=== PATIENT | male | born 1980 | race Caucasian/White ===

== ENCOUNTER 2020-03-31 18:28 | Emergency (ER) | payer MEDICAID ==
[~2020-03-31] VITALS: Ht 175.3 cm; Wt 70.3 kg
--- NOTE | 2020-03-31 18:28 | NUR ---
PT BIBRA FROM [employer] C/O OVERDOSE OF UNKNOWN DRUGS. PT IS AAOX3, NOT IN RESPIRATORY DISTRESS, HOOKED TO BREAD WRAPPING MACHINE FEEDER, KEPT RESTED AND COMFORTABLE. WILL CONTINUE TO MONITOR.
--- NOTE | 2020-03-31 18:37 | NUR ---
PT SEEN AND EXAMINED BY CARLOS MANUEL LUA.
[2020-03-31] MEDS ORDERED: ONDANSETRON HCL/PF 4 MG/2 ML VIAL ONE (18:46)
[2020-03-31] MEDS ORDERED: LORAZEPAM INJ 2 MG/ML VIAL ONE (18:47)
--- NOTE | 2020-03-31 18:55 | NUR ---
IV LINE ESTABLISHED G18 R HAND.
[2020-03-31] MEDS ORDERED: IV NS 0.9% 1,000 ML BAG IV ONE (19:00)
[2020-03-31] MEDS ORDERED: LORAZEPAM INJ 2 MG/ML VIAL IV ONE (19:00)
[2020-03-31] MEDS ORDERED: ONDANSETRON HCL/PF 4 MG/2 ML VIAL IVP ONE (19:00)
--- NOTE | 2020-03-31 23:21 | NUR ---
PATIENT AMBULATED TO THE RESTROOM WITH A STEADY GAIT.
--- NOTE | 2020-04-01 01:24 | NUR ---
IV removed. Catheter intact and site benign. Pressure and 4x4 applied to site. No bleeding noted.
--- NOTE | 2020-04-01 01:24 | NUR ---
PATIENT PROVIDED WITH A MEAL.
--- NOTE | 2020-04-01 01:43 | NUR ---
Patient discharged to home in stable condition. Written and verbal after care instructions given. Patient verbalizes understanding of instruction.
[2020-04-01 01:44] VITALS: BP 127/83
== END 2020-04-01 01:44 | disposition home or self-care (01) ==
LOC: ER 18:29
DX: F19.129 Other psychoactive substance abuse with intoxication, unspecified (principal); F11.10 Opioid abuse, uncomplicated; R11.2 Nausea with vomiting, unspecified; L53.9 Erythematous condition, unspecified; R00.0 Tachycardia, unspecified; I45.10 Unspecified right bundle-branch block; F41.9 Anxiety disorder, unspecified; F32.9 Major depressive disorder, single episode, unspecified
CPT/HCPCS: 93005 ×2; 96361; 96374; 96375; 99284; J2060; J2405; J7030

== ENCOUNTER 2020-04-02 11:14 | Inpatient (IN) | payer MEDICAID, OTHER ==
[~2020-04-02] VITALS: Ht 175.3 cm; Wt 70.3 kg
--- NOTE | 2020-04-02 11:15 | NUR ---
PT [address]IBRA [address] C/O BIZZARRE BEHAVIOR. PT IS AAOX2, NOT IN RESPIRATORY DISTRESS, HOOKED TO SENIOR SUSTAINABILITY CONSULTANT. KEPT RESTED AND COMFORTABLE. WILL CONTINUE TO MONITOR.
--- NOTE | 2020-04-02 11:25 | NUR ---
SEEN AND EXAMINED BY .
--- NOTE | 2020-04-02 11:29 | NUR ---
IV LINE ESTABLISHED BLOOD DRAWN AND SENT TO LAB.
[2020-04-02] MEDS ORDERED: IV NS 0.9% 1,000 ML BAG IV ONE (11:30)
--- NOTE | 2020-04-02 11:35 | NUR ---
URINE SPECIMEN COLLECTED AND SENT TO LAB.
[2020-04-02 11:37] LABS: BASOPHILS % (AUTO) 0.2 % (0.0-2.0); HEMATOCRIT 43 % (39-51); HEMOGLOBIN 14.7 g/dL (13.5-17.5); LYMPHOCYTES # (AUTO) 0.5 /CMM (0.8-4.8); LYMPHOCYTES % (AUTO) 3.2 % (20.0-44.0); MEAN CORPUSCULAR HGB CONC 34 g/dl (31.0-36.0); MEAN CORPUSCULAR VOLUME 96 fL (80-96); MONOCYTES # (AUTO) 1.2 /CMM (0.1-1.30); MONOCYTES % (AUTO) 7.4 % (2.0-12.0); NEUTROPHILS # (AUTO) 15.1 /CMM (1.8-8.9); NEUTROPHILS % (AUTO) 89.2 % (43.0-81.0); PLATELET COUNT (AUTO) 155 /CMM (150-450); RED BLOOD CELL COUNT(AUTO) 4.51 MIL/uL (4.5-6.0); WHITE BLOOD COUNT (AUTO) 16.9 K/uL (4.3-11.0)
[2020-04-02 11:42] LABS: CALCIUM, SERUM 8.4 mg/dL (8.5-10.1); CARBON DIOXIDE 20 mmol/L (21-32); CHLORIDE 104 mmol/L (98-107); CREATININE 1.8 mg/dL (0.6-1.3); GLUCOSE 95 mg/dL (74-106); POTASSIUM 4.1 mmol/L (3.5-5.1); SODIUM SERUM 141 mmol/L (136-145); UREA NITROGEN, BLOOD 27 mg/dL (7-18)
[2020-04-02] MEDS ORDERED: HALOPERIDOL LACTATE INJ 5 MG/ML VIAL ONE (11:47)
[2020-04-02 11:48] LABS: ACETAMINOPHEN 0 ug/ml (10-30); ALANINE AMINOTRANSFERASE 511 U/L (12-78); ALBUMIN 4.3 g/dL (3.4-5.0); ALCOHOL, BLOOD < 3 mg/dL (0-0); ALKALINE PHOSPHATASE 80 U/L (46-116); ASPARTATE AMINOTRANSFERASE 861 U/L (15-37); BILIRUBIN,DIRECT 0.3 mg/dL (0.0-0.2); BILIRUBIN,TOTAL 0.9 mg/dL (0.2-1.0); SALICYLATE 1.9 mg/dL (2.8-20.0); TOTAL PROTEIN, SERUM 7.6 g/dL (6.4-8.2)
[2020-04-02] MEDS ORDERED: LORAZEPAM INJ 2 MG/ML VIAL ONE (11:48)
[2020-04-02 12:00] LABS: APPEARANCE,URINE Slightly Cloudy (CLEAR); BILIRUBIN,URINE SMALL (NEGATIVE); BLOOD, URINE Large Ery/uL (NEGATIVE); COLOR,URINE Yellow (YELLOW); KETONES,URINE 15 (NEGATIVE); LEUKOCYTE ESTERASE ,URINE Negative (NEGATIVE); NITRITE, URINE Negative (NEGATIVE); PROTEIN,URINE 100 mg/dl (NEGATIVE); UGLUCOSE Negative (NEGATIVE); UROBILINOGEN,URINE 0.2 EU/dL (0.2)
[2020-04-02] MEDS ORDERED: LORAZEPAM INJ 2 MG/ML VIAL IV ONE (12:00)
[2020-04-02] MEDS ORDERED: HALOPERIDOL LACTATE INJ 5 MG/ML VIAL IV ONE (12:00)
[2020-04-02 12:29] LABS: BACTERIA,URINE Rare /HPF (None Seen); SQUAMOUS EPITHELIAL CELL,UR Rare /HPF (None Seen)
[2020-04-02] MEDS ORDERED: AZITHROMYCIN 500 MG in IV D5W 250 ML IV ONE (13:30)
[2020-04-02] MEDS ORDERED: CEFTRIAXONE 1GM BAG (ER ONLY) 1 GM/50 ML PIGGYBACK IV ONE (13:30)
--- NOTE | 2020-04-02 13:45 | NUR ---
COVID SWAB DONE AND SENT TO LAB
--- NOTE | 2020-04-02 13:54 | NUR ---
PAGED [facility].
--- NOTE | 2020-04-02 14:44 | NUR ---
NURSING SUP GAVE M/S BED 307-2.
--- NOTE | 2020-04-02 14:45 | NUR ---
REPORT GIVEN TO SIVAN ALSTON FOR SOUTH,.
--- NOTE | 2020-04-02 15:30 | NUR ---
RN MS NOTES RECEIVED PT FROM E.R. STAFF VIA [facility], ASSISTED TO BED, MADE COMFORTABLE, ROOM SET UP ORIENTATION PROVIDED, PT STILL SLEEPY AT THIS TIME, AROUSABLE BY NAME, NOT IN DISTRESS, ON O2 AT 2LPM VIA N/C, KEPT COMFORTABLE IN BED, VITALS TAKEN.
[2020-04-02 16:00] VITALS: BP 104/75
[2020-04-02] MEDS ORDERED: ONDANSETRON HCL/PF 4 MG/2 ML VIAL IVP PRN (17:30)
[2020-04-02] MEDS ORDERED: ACETAMINOPHEN 325 MG TABLET PO PRN (17:30)
[2020-04-02] MEDS ORDERED: MAGNESIUM HYDROXIDE 30 ML UDC PO PRN (17:30)
[2020-04-02] MEDS ORDERED: MAG HYDROX/AL HYDROX/SIMETH 30 ML UDC PO PRN (17:30)
[2020-04-02] MEDS ORDERED: ZOLPIDEM TARTRATE 5 MG TABLET PO PRN (17:30)
[2020-04-02] MEDS ORDERED: Z GUARD REMEDY 2 OZ OINT TP PRN (17:30)
[2020-04-02] MEDS: IV 1/2NS 1000 ML 1,000 ML IV PRN (18:44)
--- NOTE | 2020-04-02 19:09 | NUR ---
RN MS NOTES PT IN BED, STILL SLEEPY, AROUSABLE BY NAME AND PAINFUL STIMULI, NOT IN DISTRESS, ADMITTING ORDERS RECEIVED, NOTED AND CARRIED OUT, SKIN ASSESSMENT DONE, KEPT COMFORTABLE, ENDORSED TO MIXER OPERATOR RAW SALT NURSE FOR CONTINUITY OF CARE.
--- NOTE | 2020-04-02 19:30 | NUR ---
MS RN OPENING NOTES RECEIVED PATIENT FROM MORNING SHIFT ASLEEP BUT AROUSABLE BY NAME. BREATHING REGULAR AND UNLABORED ON OXYGEN AT 2L/MIN VIA NASAL CANNULA. LEFT AC G18 IV LINE INTACT AND PATENT, INFUSING WELL WITH NO BLEEDING OR S/S OF INFILTRATION NOTED. OBSERVED WITH MULTIPLE SKIN ABRASION ON BUE/BLE. NO S/S OF PAIN/DISCOMFORT SEEN AT THIS TIME. BED LOW AND LOCKED ON SEMI FOWLERS POSITION. CALL LIGHT IN REACH. WILL CONTINUE TO MONITOR.
[2020-04-02 20:00] VITALS: BP 124/65
[2020-04-02 20:59] VITALS: BP 124/65
--- NOTE | 2020-04-03 | NUR ---
MS RN NOTES PATIENT WOKE UP HUNGRY, ASKED FOR FOOD AND LOOKING FOR HIS DENTURES. CHECKED PATIENTS BELONGINGS LIST WITH NO DENTURES INCLUDED. EXPLAINED TO THE PATIENT THAT HE WAS FOUND NAKED AND UNRESPONSIVE ON THE STREET BY [employer]AMEDICS AND THAT HE ONLY CAME WITH HIS CELLPHONE AND WALLET, NO DENTURES. SANDWICH AND JUICES GIVEN. WILL CONTINUE TO MONITOR.
--- NOTE | 2020-04-03 06:25 | NUR ---
MS RN CLOSING NOTES PATIENT IN BED ALERT AND ORIENTED X 2. AFEBRILE WITH NO S/S OF DISTRESS OBSERVED. LEFT AC G18 IV PATENT AND INFUSING WELL. NO S/S OF PAIN/DISCOMFORT NOTED AT THIS TIME. BED LOW AND LOCKED ON SEMI FOWLERS POSITION. CALL LIGHT IN REACH. WILL ENDORSE TO MORNING SHIFT FOR SOUTH.
[2020-04-03 07:01] LABS: BASOPHILS # (AUTO) 0.1 /CMM (0.0-0.2); BASOPHILS % (AUTO) 0.7 % (0.0-2.0); EOSINOPHILS % (AUTO) 1.7 % (0.0-6.0); HEMATOCRIT 44 % (39-51); HEMOGLOBIN 15.1 g/dL (13.5-17.5); LYMPHOCYTES # (AUTO) 1.8 /CMM (0.8-4.8); LYMPHOCYTES % (AUTO) 17.4 % (20.0-44.0); MEAN CORPUSCULAR HGB CONC 35 g/dl (31.0-36.0); MEAN CORPUSCULAR VOLUME 95 fL (80-96); MONOCYTES # (AUTO) 0.7 /CMM (0.1-1.30); MONOCYTES % (AUTO) 6.8 % (2.0-12.0); NEUTROPHILS # (AUTO) 7.7 /CMM (1.8-8.9); NEUTROPHILS % (AUTO) 73.4 % (43.0-81.0); PLATELET COUNT (AUTO) 131 /CMM (150-450); RED BLOOD CELL COUNT(AUTO) 4.61 MIL/uL (4.5-6.0); WHITE BLOOD COUNT (AUTO) 10.5 K/uL (4.3-11.0)
[2020-04-03 07:28] LABS: THYROID STIMULATING HORMONE 1.083 uIU/mL (0.358-3.74)
[2020-04-03 08:00] VITALS: BP_SYST 114; BP_SYST 132; BP_DIAS 69; BP_DIAS 84
[2020-04-03 08:03] LABS: CALCIUM, SERUM 8.2 mg/dL (8.5-10.1); MAGNESIUM 2.5 mg/dL (1.8-2.4); PHOSPHORUS 2.4 mg/dL (2.5-4.9); POTASSIUM 3.7 mmol/L (3.5-5.1)
--- NOTE | 2020-04-03 10:30 | NUR ---
WOUND CARE CONSULT: PT PRESENTS WITH MULTIPLE SCRATCHES AND DRY ABRASIONS, PRESENT ON ADMISSION. PT IS CONTINENT AT THIS TIME AND INDEPENDENT WITH BED MOBILITY. WILL SEE PRN.
[2020-04-03] MEDS: CEFTRIAXONE 1 G in IV D5W 50 ML IV SCH (12:14)
[2020-04-03] MEDS: AZITHROMYCIN 500 MG in IV D5W 250 ML IV SCH (13:04)
[2020-04-03 13:06] LABS: ALBUMIN 3.5 g/dL (3.4-5.0); BILIRUBIN,DIRECT 0.2 mg/dL (0.0-0.2); BILIRUBIN,TOTAL 0.7 mg/dL (0.2-1.0); TOTAL PROTEIN, SERUM 6.5 g/dL (6.4-8.2)
[2020-04-03] MEDS ORDERED: K PHOS NEUTRAL 250 MG TABLET PO ONE (16:00)
--- NOTE | 2020-04-03 18:22 | NUR ---
RN END OF SHIFT SUMMARY PT IS A/OX3, AFEBRILE. NON-MONITORED, VSS. TOLERATING RA. RESPIRATIONS ARE EVEN AND UNLABORED, NOT IN ANY ACUTE DISTRESS NOTED. DENIES ANY CHEST PAIN, SOB, N/V. ABDOMEN IS SOFT AND NONDISTENDED, BOWEL SOUNDS ARE PRESENT IN ALL 4 QUADRANTS UPON AUSCULTATION. DENIES ANY BLADDER DISCOMFORT. SKIN CDI. ALL NEEDS MET AND RENDERED. SAFETY MEASURES ARE IN PLACE. CALL LIGHT IS LEFT WITHIN REACH. WILL MONITOR AND CONTINUE POC.
[2020-04-03 20:00] VITALS: BP 131/74
--- NOTE | 2020-04-03 20:00 | NUR ---
MS RN OPENING NOTE: Received patient sleeping in bed comfortably but easily arousable. Patient denies pain or discomfort at this time. Patient on nasal canula with 2L of Oxygen. No SOB noted. Breathing unlabored and equal. IV access noted on Left AC, 18 gauge. Flushes well, patent, no redness, or infiltration. Safety precaution is in place; bed in lowest position, bed is locked, side rails x2 are up, and call light is within reach. Will continue plan of care and monitor.
--- NOTE | 2020-04-04 06:30 | NUR ---
MS RN CLOSING NOTE: Patient in bed sleeping comfortably but easily arousable. Patient shows no signs of distress. No SOB noted. Breathing unlabored and equal. Safety precaution is in place; bed in lowest position, bed is locked, side rails x2 are up, and call light is within reach. Will endorse to next shift.
--- NOTE | 2020-04-04 07:40 | NUR ---
RN OPENING NOTE Patient is resting in bed, A/O x2, showing no signs of acute distress or SOB, stable on RA. IV line in the LAC#18g running 0.45% NS @ 75mls/hour. Bed is in lowest position, side rails x3 in upright position, call light is within reach, fall safety and aspiration precautions enforced. Will continue with plan of care.
[2020-04-04 08:00] VITALS: BP_SYST 141; BP_DIAS 65; BP_DIAS 67
[2020-04-04 08:35] LABS: BASOPHILS # (AUTO) 0.1 /CMM (0.0-0.2); EOSINOPHILS % (AUTO) 2.9 % (0.0-6.0); HEMATOCRIT 44 % (39-51); HEMOGLOBIN 15.1 g/dL (13.5-17.5); LYMPHOCYTES # (AUTO) 1.8 /CMM (0.8-4.8); LYMPHOCYTES % (AUTO) 25.7 % (20.0-44.0); MEAN CORPUSCULAR HGB CONC 34 g/dl (31.0-36.0); MEAN CORPUSCULAR VOLUME 95 fL (80-96); MONOCYTES # (AUTO) 0.6 /CMM (0.1-1.30); MONOCYTES % (AUTO) 8.5 % (2.0-12.0); NEUTROPHILS # (AUTO) 4.4 /CMM (1.8-8.9); NEUTROPHILS % (AUTO) 61.9 % (43.0-81.0); PLATELET COUNT (AUTO) 136 /CMM (150-450); RED BLOOD CELL COUNT(AUTO) 4.62 MIL/uL (4.5-6.0); WHITE BLOOD COUNT (AUTO) 7.1 K/uL (4.3-11.0)
[2020-04-04] MEDS: IV 1/2NS 1000 ML 1,000 ML IV PRN ×3 (08:37→23:22)
[2020-04-04 08:45] LABS: ALBUMIN 3.1 g/dL (3.4-5.0); BILIRUBIN,DIRECT 0.2 mg/dL (0.0-0.2); BILIRUBIN,TOTAL 0.7 mg/dL (0.2-1.0); TOTAL PROTEIN, SERUM 6.1 g/dL (6.4-8.2)
[2020-04-04 08:48] LABS: CALCIUM, SERUM 8.3 mg/dL (8.5-10.1); CREATININE 0.7 mg/dL (0.6-1.3); MAGNESIUM 2.1 mg/dL (1.8-2.4); PHOSPHORUS 1.9 mg/dL (2.5-4.9); POTASSIUM 3.4 mmol/L (3.5-5.1)
[2020-04-04] MEDS ORDERED: POTASSIUM CHLORIDE 20 MEQ TAB.PRT.SR PO SCH (11:30)
--- NOTE | 2020-04-04 12:09 | NUR ---
Social Service consult requested by MD for homelessness. Per MD notes, pt is a 40-year-old male brought in by EMS from the street after he was found naked sleeping in the alley. Patient denies any medical complaints> Pt was found to have left lung opacity concerning for pneumonia and sepsis with leukocytosis and tachycardia in ED and treated with IV azithromycin and Rocephin in ED. UDS negative. INTENSIVE CARE SPECIALIST conducted chart review and met with the pt bedside. Pt was seen in the ED a few days ago for heroin use/abuse. Pt is alert and oriented x 4. Pt appears disheveled. Pt reports to be living on the streets and has been homeless for the past few years. Pt was residing in a sober living prior to becoming homeless. Pt receives Food stamps and GR. Pt smokes 1/2 a pack of cigarettes per day. Pt reports to have a history of substance use/abuse and last used heroin a few days ago. Pt uses marijuana daily. Pt is requesting motel voucher. INTENSIVE CARE SPECIALIST informed pt he needs to connect with [facility] and have them assist him with housing and motel vouchers. INTENSIVE CARE SPECIALIST to provide pt information to [facility] for pt to f/u. Pt is independent with his ADLs and IADLs. Pt reports to have a psychiatric diagnosis of Depression and Anxiety. Pt is currently no on any psychotropic medications. Pt reports to have one psychiatric hospitalization a year ago in [place]. Pt currently denies suicidal and homicidal ideations. INTENSIVE CARE SPECIALIST provided pt with active listening, supportive counselling, emotional support and positive coping skills. INTENSIVE CARE SPECIALIST to provide pt with Homeless Resources Related to COVID-19 prior to discharge. Homeless patient waiver form to be signed by the pt and TAP card provided at time of discharge. INTENSIVE CARE SPECIALIST updated CM Leonila regarding pt's discharge disposition. Service Sprinkler Helper to remain available for support as needed.
[2020-04-04] MEDS: CEFTRIAXONE 1 G in IV D5W 50 ML IV SCH (12:26)
[2020-04-04] MEDS: AZITHROMYCIN 500 MG in IV D5W 250 ML IV SCH (14:04)
[2020-04-04 16:00] VITALS: BP 140/60
[2020-04-04] MEDS ORDERED: K PHOS NEUTRAL 250 MG TABLET PO ONE (16:00)
--- NOTE | 2020-04-04 18:11 | NUR ---
RN CLOSING NOTE Patient is resting in bed, A/O x2, showing no signs of acute distress or SOB, stable on RA. IV line in the right wrist #22g running 0.45% NS @ 150mls/hour. All patient needs met, all due medications given, patient kept clean and dry throughout shift. Bed is in lowest position, side rails x3 in upright position, call light is within reach, fall safety and aspiration precautions enforced. Will endorse to slot shift supervisor.
[2020-04-04] MEDS: HYDROCODONE/APAP 5/325MG TABLET PO PRN (18:16)
--- NOTE | 2020-04-04 19:48 | NUR ---
MS RN OPENING NOTES Patient received resting in bed a/o x 3. Stable on RA with breathing even and unlabored, no sob noted. No signs of acute distress. No complaints of pain or discomfort at the moment. IV located on L wrist #22 running NS @ 150 ml/hr. Safety precautions in place with bed in lowest position, call light within reach, breaks on, side rails up. Will continue to monitor throughout the night.
[2020-04-04 20:00] VITALS: BP 157/96
[2020-04-04 20:50] VITALS: BP 157/96
--- NOTE | 2020-04-05 06:43 | NUR ---
MS RN CLOSING NOTES Patient resting in bed a/o x 3. Stable on RA with breathing even and unlabored, no sob noted. No signs of acute distress. No complaints of pain or discomfort at the moment. IV located on L wrist #22 running NS @ 150 ml/hr. Safety precautions in place with bed in lowest position, call light within reach, breaks on, side rails up. All needs attended to throughout the night. will endorse to oncoming shift about kem.
--- NOTE | 2020-04-05 07:30 | NUR ---
RN MS NOTES PT IN BED, ASLEEP, NO SIGN OF PAIN OR DISTRESS, CALL LIGHT WITHIN REACH, IV FLUIDS INFUSING, KEPT COMFORTABLE.
[2020-04-05 07:34] LABS: CALCIUM, SERUM 8.3 mg/dL (8.5-10.1); CREATININE 0.7 mg/dL (0.6-1.3); PHOSPHORUS 3.4 mg/dL (2.5-4.9); POTASSIUM 3.5 mmol/L (3.5-5.1)
[2020-04-05 07:48] LABS: ALBUMIN 3.1 g/dL (3.4-5.0); BILIRUBIN,DIRECT 0.1 mg/dL (0.0-0.2); BILIRUBIN,TOTAL 0.5 mg/dL (0.2-1.0); TOTAL PROTEIN, SERUM 6.2 g/dL (6.4-8.2)
[2020-04-05 08:19] LABS: BASOPHILS # (AUTO) 0.1 /CMM (0.0-0.2); BASOPHILS % (AUTO) 0.8 % (0.0-2.0); EOSINOPHILS % (AUTO) 3.9 % (0.0-6.0); HEMATOCRIT 43 % (39-51); LYMPHOCYTES # (AUTO) 2.1 /CMM (0.8-4.8); MEAN CORPUSCULAR HGB CONC 35 g/dl (31.0-36.0); MEAN CORPUSCULAR VOLUME 96 fL (80-96); MONOCYTES # (AUTO) 0.5 /CMM (0.1-1.30); NEUTROPHILS % (AUTO) 58.3 % (43.0-81.0); PLATELET COUNT (AUTO) 147 /CMM (150-450); WHITE BLOOD COUNT (AUTO) 6.9 K/uL (4.3-11.0)
[2020-04-05 08:20] VITALS: BP 129/85
[2020-04-05] MEDS: HYDROCODONE/APAP 5/325MG TABLET PO PRN ×4 (08:49→22:56)
[2020-04-05] MEDS: SERTRALINE HCL 25 MG TABLET PO SCH (08:49)
--- NOTE | 2020-04-05 10:36 | NUR ---
DAIRY CHEMIST met with the pt bedside and provided him with Homeless Resources Related to COVID-19 which include food, hygiene, retirement information, mental health clinics. DAIRY CHEMIST also provided pt with [facility] entry location and hours information for [facility] so pt can sign up for [facility] services. DAIRY CHEMIST also provided pt with [facility] information to assist him with applying for disability. Blank Homeless patient waiver form was placed in pt's chart for pt to sign upon discharge. Pt's bedside RN Adelaide was updated with aforementioned information. Pt will require a TAP card upon discharge. Defensive Line Coach is available for support as needed.
[2020-04-05] MEDS: CEFTRIAXONE 1 G in IV D5W 50 ML IV SCH (12:35)
[2020-04-05] MEDS: IV 1/2NS 1000 ML 1,000 ML IV PRN (12:52)
[2020-04-05] MEDS: AZITHROMYCIN 500 MG in IV D5W 250 ML IV SCH (14:08)
[2020-04-05 15:44] VITALS: BP 145/91
--- NOTE | 2020-04-05 18:33 | NUR ---
RN Closing notes Patient remains alert and verbally responsive. A/O x2. no signs and symptoms of distress. Able to ambulate to the restroom in steady gait. Respiration is even and easy with no SOB. IV line in place and running 0.45 % NS @ 150ml/hr. All medications given as ordered, and tolerated well. Kept safe and comfortable. Cooperative with care and treatment.
--- NOTE | 2020-04-05 19:28 | NUR ---
MS RN OPENING NOTES RECEIVED PATIENT RESTING IN BED COMFORTABLY; A/OX3; BREATHING EVEN AND UNLABORED; TOLERATING ROOM AIR WELL; NO SOB NOTED; PATIENT AMBULATORY AND ABLE TO MAKE NEEDS KNOWN; L WRIST # 22 INTACT AND PATENT, FLUSHING WELL; INFUSING 1/2NS @ 150ML/HR; TOLERATING IVF WELL; SAFETY PRECAUTIONS IMPLEMENTED; BED LOCKED IN LOW POSITION; SIDE RAILSX2; CALL LIGHT WITHIN REACH; WILL CONT TO MONITOR
[2020-04-05 20:00] VITALS: BP 155/94
--- NOTE | 2020-04-05 21:04 | NUR ---
MS RN NOTES PATIENT COMPLAINING OF ANXIOUSNESS; EMAR CHECKED, NO ATIVAN PRN ORDERED; MD MADE AWARE; AWAITING FOR ORDERS; WILL CONT TO MONITOR
[2020-04-05] MEDS: LORAZEPAM INJ 2 MG/ML VIAL IV PRN (21:51)
--- NOTE | 2020-04-05 21:56 | NUR ---
RN NOTES PER MD; OK TO RESTART ATIVAN 2MG IVP; ORDERS INPUTTED AND VERIFIED; ATIVAN 2MG IVP ADMINISTERED PER MD ORDER; PATIENT AWARE WE ARE UNABLE TO ADMINISTER NORCO AT THE SAME TIME AND AGREED TO WAIT AT LEAST 1 HOUR PRIOR TO NORCO ADMINISTRATION; WILL CONT TO MONITOR; CHARGE NURSE AWARE
--- NOTE | 2020-04-05 23:00 | NUR ---
MS RN NOTES PATIENT COMPLAINT OF 7/10 L SHOULDER PAIN; VITAL SIGNS WNL; PATIENT A/OX4, BREATHING EVEN AND UNLABORED; NO SOB NOTED; NORCO ADMINISTERED PER MD ORDER; WILL CONT TO MONITOR
--- NOTE | 2020-04-06 03:00 | NUR ---
MS RN NOTES PATIENT COMPLAINT OF 7/10 L SHOULDER PAIN; PATIENT REQUESTING NORCO FOR PAIN MANAGEMENT; VITAL SIGNS STABLE AND WNL; NORCO ADMINISTERED PER MD ORDER; WILL CONT TO MONITOR;
[2020-04-06] MEDS: HYDROCODONE/APAP 5/325MG TABLET PO PRN ×4 (03:01→19:46)
[2020-04-06] MEDS: IV 1/2NS 1000 ML 1,000 ML IV PRN ×2 (03:03→15:31)
--- NOTE | 2020-04-06 03:30 | NUR ---
MS RN NOTES PATIENT WOULD LIKE TO STOP IVF WHILE HE SLEEPS; PATIENT MENTIONED IT IS A HASSLE FOR HIM TO GET OUT OF BED TO USE THE RESTROOM IF NEEDED; PATIENT AWARE AND UNDERSTANDS IMPORTANCE OF IVF DURING HOSPITALIZATION; PATIENT JUST REQUESTING TO RE-START IVF IN AM; WILL CONT TO MONITOR
--- NOTE | 2020-04-06 06:54 | NUR ---
MS RN CLOSING NOTES PATIENT RESTING IN BED COMFORTABLY; A/OX3-4; BREATHING EVEN AND UNLABORED; PATIENT TOLERATING ROOM AIR WELL; NO SOB NOTED; L WRIST #22 INTACT AND PATENT, FLUSHING WELL; NO S/S OF REDNESS OR INFILTRATION NOTED; TOLERATING IVF WELL; PATIENT ABLE TO MAKE NEEDS KNOWN; ALL NEEDS RENDERED; SAFETY PRECAUTIONS IMPLEMENTED; BED LOCKED IN LOW POSITION; SIDE RAILSX2; CALL LIGHT WITHIN REACH; WILL ENDORSE SOUTH TO ONCOMING SHIFT
--- NOTE | 2020-04-06 07:10 | NUR ---
MS RN OPENING NOTES RECEIVED PATIENT WAKE IN BED AT THIS TIME. AOX4. PT TO VERBALIZE NEEDS. NO SOB NOTED, NO S/S OF ANY ACUTE DISTRESS NOTED, NO C/O PAIN AT THIS TIME. RESPIRATIONS EVEN AND UNLABORED ON RA. IV ACCESS ON L-WRIST G#22, INTACT, PATENT AND FLUSHING WELL. MULTIPLE SKIN ABRASIONS NOTED. SAFETY PRECAUTIONS IN PLACE. BED IN LOWEST LOCKED POSITION, SIDE RAILS UP, HEAD OF BED ELEVATED TO SEMI FOWLERS POSITION, CALL LIGHT WITHIN REACH. WILL CONTINUE TO MONITOR
[2020-04-06 08:00] VITALS: BP 149/83
--- NOTE | 2020-04-06 08:23 | NUR ---
PT C/O LEFT SHOULDER ACHING/THROBBING PAIN ON A SCALE OF 7/10. VS WNL. PER PATIENT REQUEST, NORCO 5-325 PO Q4HR PRN ADMINISTERED AT THIS TIME. WILL CONTINUE TO MONITOR
[2020-04-06 08:24] LABS: BASOPHILS # (AUTO) 0.1 /CMM (0.0-0.2); BASOPHILS % (AUTO) 1.4 % (0.0-2.0); HEMATOCRIT 45 % (39-51); HEMOGLOBIN 15.4 g/dL (13.5-17.5); LYMPHOCYTES # (AUTO) 1.9 /CMM (0.8-4.8); LYMPHOCYTES % (AUTO) 31.9 % (20.0-44.0); MEAN CORPUSCULAR HGB CONC 34 g/dl (31.0-36.0); MEAN CORPUSCULAR VOLUME 96 fL (80-96); MONOCYTES # (AUTO) 0.4 /CMM (0.1-1.30); MONOCYTES % (AUTO) 7.4 % (2.0-12.0); NEUTROPHILS # (AUTO) 3.2 /CMM (1.8-8.9); NEUTROPHILS % (AUTO) 53.3 % (43.0-81.0); PLATELET COUNT (AUTO) 159 /CMM (150-450); RED BLOOD CELL COUNT(AUTO) 4.72 MIL/uL (4.5-6.0)
[2020-04-06] MEDS: SERTRALINE HCL 25 MG TABLET PO SCH (08:24)
[2020-04-06 08:36] LABS: CALCIUM, SERUM 8.6 mg/dL (8.5-10.1); CREATININE 0.6 mg/dL (0.6-1.3); MAGNESIUM 2.1 mg/dL (1.8-2.4); PHOSPHORUS 3.6 mg/dL (2.5-4.9); POTASSIUM 3.6 mmol/L (3.5-5.1)
[2020-04-06] MEDS: LORAZEPAM INJ 2 MG/ML VIAL IV PRN ×3 (11:27→22:22)
--- NOTE | 2020-04-06 11:27 | NUR ---
PT C/O OF ANXIETY AND REQUESTED FOR ATIVAN. VS WNL. ATIVAN 2MG IV Q6H PRN ADMINISTERED AT THIS TIME. WILL CONTINUE TO MONITOR
[2020-04-06] MEDS: CEFTRIAXONE 1 G in IV D5W 50 ML IV SCH (12:06)
[2020-04-06] MEDS: AZITHROMYCIN 500 MG in IV D5W 250 ML IV SCH (13:30)
--- NOTE | 2020-04-06 13:38 | NUR ---
PT C/O LEFT SHOULDER/hand ACHING/THROBBING PAIN ON A SCALE OF 6/10. VS CHECKED, BP 121/91, HR 91, RR 20, T 98.6, SPO2 98%. PER PATIENT REQUEST, NORCO 5-325 PO Q4HR PRN ADMINISTERED AT THIS TIME. WILL CONTINUE TO MONITOR
[2020-04-06 16:00] VITALS: BP 136/92
--- NOTE | 2020-04-06 16:43 | NUR ---
PER DR RUSHING, ORDER XR LEFT ELBOW COMPLETE STAT. ORDERS READ BACK AND CARRIED OUT. WILL CONTINUE TO MONITOR
[2020-04-06] MEDS ORDERED: AZIT250T PO (18:19)
[2020-04-06] MEDS ORDERED: SERT25TA5 PO (18:19)
--- NOTE | 2020-04-06 18:21 | NUR ---
PT C/O OF ANXIETY AND REQUESTED FOR ATIVAN. VS ASSESSED. BP 136/92, HR 63, RR 17, T 97.6, SPO2 96. ATIVAN 2MG IV Q6H PRN ADMINISTERED AT THIS TIME. WILL CONTINUE TO MONITOR
--- NOTE | 2020-04-06 18:57 | NUR ---
MS RN CLOSING NOTES PT AWAKE IN BED AT THIS TIME. PT REMAINED STABLE THROUGHOUT SHIFT. ALL CARE, NEEDS, TREATMENT, MEDICATIONS ADMINISTERED ANTICIPATED PER SCHEDULE. PT KEPT CLEAN AND DRY. SAFETY PRECAUTIONS IN PLACE, BED IN LOWEST LOCKED POSITION, HOB ELEVATED TO SEMI FOWLERS POSITION, SIDE RAILS UP, CALL LIGHT WITHIN REACH, WILL ENDORSE TO QUALIFIED CRAFT WORKER ELECTRICIAN NURSE FOR SOUTH.
[2020-04-06 20:00] VITALS: BP 147/97
--- NOTE | 2020-04-06 20:00 | NUR ---
MS RN NOTES RECEIVED PATIENT IN BED, AWAKE, CONSCIOUS, A/0 X4, BREATHING AT ROOM AIR, UNLABORED BREATHING, NO SIGNS OF RESPIRATORY DISTRESS, AMBULATORY, LEFT WRIST #22G, SIDE RAILS UP.
[2020-04-07] MEDS: HYDROCODONE/APAP 5/325MG TABLET PO PRN ×2 (00:12→04:38)
--- NOTE | 2020-04-07 04:38 | NUR ---
MS RN NOTES NORCO 5-325 GIVEN 1 TAB PO. BP- 126/95, HR- 69.
--- NOTE | 2020-04-07 06:42 | NUR ---
MS RN CLOSING NOTES ENDORSED PATIENT IN BED, AWAKE, CONSCIOUS, A/0 X4, BREATHING AT ROOM AIR, UNLABORED BREATHING, NO SIGNS OF RESPIRATORY DISTRESS, AMBULATORY, LEFT WRIST #22G, NO REDNESS OR INFILTRATION NOTED, PAIN MEDS GIVEN, SIDE RAILS UP FOR SAFETY.
--- NOTE | 2020-04-07 07:10 | NUR ---
MS RN NOTES PATIENT IN BED ALERT ORIENTED X 4. NO ACUTE DISTRESS NOTED. BREATHING UNLABORED.DENIED ANY PAIN. IV ACCESS PATENT AND INTACT, NO REDNESS, NO SWELLING NOTED. SAFETY MEASURES IN PLACE. CALL LIGHT WITHIN REACH. WILL CONTINUE TO MONITOR ACCORDINGLY.
[2020-04-07 08:00] VITALS: BP 140/91
[2020-04-07] MEDS: SERTRALINE HCL 25 MG TABLET PO SCH (08:48)
--- NOTE | 2020-04-07 08:50 | NUR ---
MS RN NOTES PATIENT REFUSED ZOLOFT DESPITE OF EXPLANATION OF RISKS AND BENEFITS
--- NOTE | 2020-04-07 12:45 | NUR ---
MS RN NOTES PATIENT DISCHARGE HOME WITH STABLE VITAL SIGNS. ALERT ORIENTED X 4. NO ACUTE DISTRESS NOTED. BREATHING UNLABORED.DENIED ANY PAIN. APPEARS CALM. IV ACCESS REMOVED, NO REDNESS, NO SWELLING NOTED, NO BLEEDING NOTED. DISCHARGE INSTRUCTIONS GIVEN TO THE PATIENT , INCLUDING FOLLOW UP WITH PRIMARY DOCTOR IN 1 WEEK AND NEW PRESCRIPTION, VERBALIZED UNDERSTANDING. ALL BELONGINGS ACCOUNTED FOR. REFUSED PHOTO TAKEN. ASSISTED TO THE LOBBY. PICKED UP VIA PRIVATE CAR ACCOMPANIED BY A FRIEND IN STABLE CONDITION.
[2020-04-07] MEDS ORDERED: AZITHROMYCIN 250 MG TABLET PO SCH (14:00)
== END 2020-04-07 12:35 | disposition home or self-care (01) | DRG 720 ==
LOC: ER 11:17 → MED 15:09
PROVIDERS: ADMIT Student in an Organized Health Care Education/Training Program; ATTEND Student in an Organized Health Care Education/Training Program
DX: A41.9 Sepsis, unspecified organism (principal); J18.9 Pneumonia, unspecified organism; N17.0 Acute kidney failure with tubular necrosis; G93.41 Metabolic encephalopathy; M62.82 Rhabdomyolysis; F41.9 Anxiety disorder, unspecified; F17.210 Nicotine dependence, cigarettes, uncomplicated; R74.0 Nonspecific elevation of levels of transaminase and lactic acid dehydrogenase [LDH]; F32.9 Major depressive disorder, single episode, unspecified; M25.512 Pain in left shoulder; F19.10 Other psychoactive substance abuse, uncomplicated; Z59.0 Homelessness
CPT/HCPCS: 36415; 71045-TC; 72125-TC; 73030-TC; 73080-TC; 80048-TC; 80061-TC; 80076-TC; 80305; 81000-TC; 82550-TC; 82553; 83735-TC; 84100-TC; 84443-TC; 85025-TC; 87040-TC; 87081-TC; 97110-TC; 97116-TC; 97530-TC; G0378; G0480; J0456; J0696; J1630; J2060; J3490; J7030; J7060

== ENCOUNTER 2020-04-16 17:49 | Emergency (ER) | payer OTHER ==
[~2020-04-16] VITALS: Ht 177.8 cm; Wt 73.5 kg
[~2020-04-16 17:49] MED LIST: AZIT250T PO; SERT25TA5 PO
--- NOTE | 2020-04-16 18:04 | NUR ---
BIBS TO ER BED 12. AAOX4. NOT IN RESP DISTRESS. AMBULATORY. CAME IN FOR NOT FEELING WELL. PER PT HAS HASNT BEEN EATING SINCE YESTERDAY AND HAS BEEN NAUSEOUS. PT ALSO ADMITS TO USING METH. PT DENIES SUICIDAL NOR HOMICIDAL IDEATION. PT DENIES BOTH VISUAL AND AUDITORY HALLUCINATIONS. PT IS NOTED ANXIOUS AT TIME OF ASSESSMENT. MD WAS AT THE BEDSIDE FOR EVAL. ORDERS RECIEVED.
[2020-04-16] MEDS ORDERED: OLANZAPINE 5 MG TABLET PO ONE (18:30)
[2020-04-16] MEDS ORDERED: OLANZAPINE 5 MG TABLET ONE (18:55)
--- NOTE | 2020-04-16 19:20 | NUR ---
URINE COLLECTED AND SENT OUT
--- NOTE | 2020-04-16 19:46 | NUR ---
Patient discharged to home in stable condition. Written and verbal after care instructions given. Patient verbalizes understanding of instruction. Pt ambulatory with a steady gait. Pt provided with a food and drink for him to eat later since he is not hungry at this time. Pt was provided with jail and rehab resources. pt signed homeles waiver.
[2020-04-16 19:50] VITALS: BP 158/98
== END 2020-04-16 19:50 | disposition home or self-care (01) ==
LOC: ER 17:52
DX: F15.10 Other stimulant abuse, uncomplicated (principal); F41.9 Anxiety disorder, unspecified; Z79.899 Other long term (current) drug therapy